=== PATIENT | male | born 1980 | race Caucasian/White ===

== ENCOUNTER 2025-06-16 19:48 | Emergency (ER) | payer OTHER, SELFPAY ==
--- NOTE | ~2025-06-16 | XR_ITS ---
Examination: XR chest 1V portable Clinical History: Chest tightness Comparison: None Technique: Portable AP Findings: Heart size normal. Lungs clear. No acute bony abnormality. IMPRESSION: 1. No acute cardiopulmonary findings given portable technique. Reviewed, dictated and finalized at location R.
[2025-06-16 19:50] VITALS: BP 141/83; PULSE 80; RESP 20; TEMP 36.9; O2SAT 97
--- NOTE | 2025-06-16 20:17 | PC.NURSE ---
Pt states he does not want anything except a chest xray. ERP notified.
--- NOTE | 2025-06-16 20:52 | PC.NURSE ---
Pt refusing blood draw, pt educated on risks and verbalized understanding. Per pt will go see his primary tomorrow and have blood drawn there. made aware
[2025-06-16 21:26] LABS: Influenza A QL RT-PCR Negative (Negative); Influenza B QL RT-PCR Negative (Negative); RSV RNA, RT-PCR Negative (Negative); SARS-CoV-2 RNA PCR Negative (Negative)
--- NOTE | 2025-06-16 21:46 | ED_ITS ---
HPI - General Adult General Chief complaint: Upper Respiratory Infection Stated complaint: cold symptoms Time Seen by Provider: 06/16/25 20:18 History of Present Illness HPI narrative: Patient is 45-year-old male who presents emergency department this evening complaining of a cough for the past 3-5 days. Also complaining of some chest tightness and congestion. Patient admits to history of lymphoma and states that he has 2 rounds of chemotherapy left. Patient is also being treated for shingles with Valtrex. Denies any additional symptoms or concerns. Denies any fevers or chills. Related Data Allergies Allergy/AdvReac Type Severity Reaction Status Date / Time No Known Allergies Allergy Verified 06/16/25 19:57 Review of Systems Review of Systems: All systems are reviewed and are negative unless stated otherwise in the HPI. Exam Narrative: General: Alert, awake, afebrile, actively coughing. HEENT: PERRL, no rhinorrhea, no post nasal drip, oropharynx clear. Neck: Trachea midline, no JVD, no lymphadenopathy. Cardiovascular: Regular rate and rhythm, no murmurs, rubs or gallops, no peripheral edema. Respiratory: Clear to auscultation bilaterally, no tachypnea, no wheezing, no rhonchi, no rubs, no respiratory distress. Abdomen: Soft, nontender, nondistended, no rebound, no guarding, no peritoneal signs. Musculoskeletal: No joint swelling or deformity, normal muscle tone. Skin: No rashes or petechia, no signs of infection. Psychiatric: Alert and oriented, normal behavior and judgment for situation. Neurological: Alert and oriented to person, place, and time. Follows all commands. No focal deficits, speech is clear and fluent. Course Vital Signs Vital signs: Vital Signs Temperature 98.4 F 06/16/25 19:50 Pulse Rate 80 06/16/25 19:50 Respiratory Rate 20 06/16/25 19:50 Blood Pressure 141/83 H 06/16/25 19:50 Pulse Oximetry 97 06/16/25 19:50 Oxygen Delivery Room Air 06/16/25 19:50 Temperature 98.4 F 06/16/25 19:50 Pulse Rate 80 06/16/25 19:50 Respiratory Rate 20 06/16/25 19:50 Blood Pressure 141/83 H 06/16/25 19:50 Pulse Oximetry 97 06/16/25 19:50 Oxygen Delivery Room Air 06/16/25 19:50 Medical Decision Making MDM Narrative Medical decision making narrative: The patient was evaluated by myself in the emergency department. History is obtained from patient who is an independent historian and physical exam was performed. External medical records were reviewed at this time. Patient refused IV, EKG and blood work, requesting only a chest x-ray. Imaging studies obtained included a portable chest x-ray which was independently interpreted by me revealing no acute process, which is pending final radiology interpretation. Patient was informed of these findings at bedside, given that he is immunocompromised on chemotherapy I did recommend starting him on a Z-Geoffrey. Was administered his 1st dose of azithromycin 500 mg p.o. in the ED. Differential diagnosis considerations include URI, acute viral syndrome, infectious process such as pneumonia. Comorbidities impacting this visit include chemotherapy, immunocompromised. I have evaluated and discussed social determinants of health with the patient that could potentially impact subsequent diagnosis and treatment plans. On repeat assessment of the patient, reevaluation revealed that the patient is doing well and is in no acute distress. Patient symptoms have improved since he arrived to our emergency department. Repeat vital signs were all reviewed and noted to be stable. Differential diagnosis and treatment plan were discussed with the patient at bedside. Patient agrees with discussion and after shared medical decision making agrees with discharge. All questions were answered to the patient's satisfaction. Patient will follow up with his PCP in 3-5 days. Script for Z-Geoffrey was sent to patient's pharmacy to use as prescribed. Patient was provided with strict return precautions and instructed to return to the emergency department if any new or worsening symptoms develop. The patient was discharged in stable condition. Vital Signs Vital Signs: Vital Signs Temperature 98.4 F 06/16/25 19:50 Pulse Rate 80 06/16/25 19:50 Respiratory Rate 20 06/16/25 19:50 Blood Pressure 141/83 H 06/16/25 19:50 Pulse Oximetry 97 06/16/25 19:50 Oxygen Delivery Room Air 06/16/25 19:50 Temperature 98.4 F 06/16/25 19:50 Pulse Rate 80 06/16/25 19:50 Respiratory Rate 20 06/16/25 19:50 Blood Pressure 141/83 H 06/16/25 19:50 Pulse Oximetry 97 06/16/25 19:50 Oxygen Delivery Room Air 06/16/25 19:50 Lab Data Labs: Lab Results 06/16/25 Range/Units 20:44 Influenza A (RT-PCR) Negative (Negative) Influenza B (RT-PCR) Negative (Negative) RSV (RT-PCR) Negative (Negative) SARS-CoV-2 RNA (RT-PCR) Negative (Negative) Discharge Plan Discharge Clinical Impression: Upper respiratory infection Patient Disposition: Home Condition: Improved Instructions: Antibiotic Form, Upper Respiratory Infection (DC) Additional Instructions: Please take the prescribed Z-Geoffrey as instructed. Return to the ED if any new or worsening symptoms develop follow up with family doctor within the next 3-5 days. Patient Language: Bhutanese Prescriptions: New azithromycin 250 mg tablet 250 mg PO DAILY 4 Days Qty: 4 0RF Rx Instructions: start on day 2 of therapy Follow-up/Referrals: PHYSICIAN,LOAN OPERATIONS MANAGER [Primary Care Provider, Internal Medicine] Parker Mir MD [Physician, Family Practice] - 3 Days Time of Disposition: 21:51
[2025-06-16] MEDS: AZITHROMYCIN 500 MG TABLET PO (22:01)
== END 2025-06-16 22:04 | disposition home or self-care (01) ==
PROVIDERS: Physician Assistant; Emergency Provider Emergency Medicine
DX: J06.9 Acute upper respiratory infection, unspecified (principal); Z20.822 Contact with and (suspected) exposure to COVID-19
CPT/HCPCS: 71045; 87637; 99283